=== PATIENT | male | born 1965 | race Caucasian/White ===

== ENCOUNTER → 2017-11-11 | Outpatient (CLI) | payer OTHER ==
[2017-11-16 09:22] LABS: ALDOSTERONE 2.3 ng/dL (0.0-30.0)
== END | disposition home or self-care (01) ==
LOC: LAB 13:22
DX: I12.9 Hypertensive chronic kidney disease with stage 1 through stage 4 chronic kidney disease, or unspecified chronic kidney disease (principal); N18.3 Chronic kidney disease, stage 3 (moderate)
CPT/HCPCS: 36415; 82088; 84244

== ENCOUNTER → 2018-03-17 | Outpatient (CLI) | payer OTHER ==
[2016-07-16 11:48] VITALS: BP 125/79
[~2018-03-17] MED LIST: AMLO5TAB2 PO; ATOR40TA59 PO; HYDR12.53 PO; LISI-130 PO; OMEP20TA63 PO
--- NOTE | 2018-03-17 10:28 | CARD ---
MR#: [id number] Date of Study: 03/17/2018 Ordering Physician: ALLIE HOPPER, Referring Physician: ALLIE HOPPER Tech: Ivelisse García RDCS APPROVED REPORT EXAM: Two-dimensional and M-mode echocardiogram with Doppler and color Doppler. Other Information Quality : Fair INDICATION Hypertension/HCVD 2D DIMENSIONS Left Atrium(2D)3.8 (1.6-4.0cm)IVSd0.9 (0.7-1.1cm) Aortic Root(2D)2.8 (2.0-3.7cm)LVDd4.8 (3.9-5.9cm) LVOT Diameter2.4 (1.8-2.4cm)PWd1.1 (0.7-1.1cm) LVDs2.9 (2.5-4.0cm)FS (%) 30.0 % SV77.8 mlLVEF(%)60.0 (>50%) Aortic Valve AoV Peak Adan.118.6cm/sAoV VTI22.6cm AO Peak GR.5.6mmHgLVOT Peak Adan.98.7cm/s AO Mean GR.3mmHgAVA (VMAX)3.80cm2 RODNEY (VTI)4.10cm2 Mitral Valve MV E Wwtsrklh64.8cm/sMV DECEL [id number] MV A Hjwyaady20.1cm/sE/A Ratio0.9 Tricuspid Valve TR P. Lavzkcce971zf/sRAP NPWYLAWU0miKd TR Peak Gr.92bfLzYIXQ82zyDb Pulmonary Vein S1 Czopnicg06.1cm/sD2 Rtjsylfk43.7cm/s LEFT VENTRICLE The left ventricle is normal size. There is normal left ventricular wall thickness. The left ventricu lar systolic function is normal. The Ejection Fraction is 55-60%. There is normal LV segmental wall m otion. RIGHT VENTRICLE The right ventricle is normal size. The right ventricular systolic function is normal. ATRIA The left atrium size is normal. The right atrium size is normal. The interatrial septum is intact wit h no evidence for an atrial septal defect or patent foramen ovale as noted on 2-D or Doppler imaging. AORTIC VALVE The aortic valve is mildly thickened but opens well. Doppler and Color Flow revealed no significant a ortic regurgitation. There is no significant aortic valvular stenosis. MITRAL VALVE The mitral valve is normal in structure and function. There is no evidence of mitral valve prolapse. There is no mitral valve stenosis. Doppler and Color Flow revealed no mitral valve regurgitation note d. TRICUSPID VALVE The tricuspid valve is normal in structure and function. Doppler and Color Flow revealed trace tricus pid regurgitation. The PA pressure was estimated at 18 mmHg. There is no tricuspid valve stenosis. PULMONIC VALVE The pulmonic valve is not well visualized. Doppler and Color Flow revealed no pulmonic valvular regur gitation. There is no pulmonic valvular stenosis. GREAT VESSELS The aortic root is normal in size. The ascending aorta is normal in size. The IVC was not visualized. PERICARDIAL EFFUSION There is no evidence of significant pericardial effusion. Critical Notification Critical Value: No <Conclusion> The left ventricular systolic function is normal. The Ejection Fraction is 55-60%. There is normal LV segmental wall motion. Doppler and Color Flow revealed trace tricuspid regurgitation. The PA pressure was estimated at 18 mmHg. There is no evidence of significant pericardial effusion. Signed by : Allie Hopper, Electronically Approved : 03/17/2018 10:27:53
== END | disposition home or self-care (01) ==
LOC: ECHO 08:12
PROVIDERS: ATTEND Internal Medicine Cardiovascular Disease
DX: I12.9 Hypertensive chronic kidney disease with stage 1 through stage 4 chronic kidney disease, or unspecified chronic kidney disease (principal); N18.3 Chronic kidney disease, stage 3 (moderate); K21.9 Gastro-esophageal reflux disease without esophagitis; E78.5 Hyperlipidemia, unspecified; Z88.0 Allergy status to penicillin; Z82.49 Family history of ischemic heart disease and other diseases of the circulatory system; Z82.3 Family history of stroke
CPT/HCPCS: 93306

== ENCOUNTER → 2018-05-31 | Outpatient (CLI) | payer OTHER ==
[2016-07-16 11:48] VITALS: BP 125/79
[~2018-05-31] MED LIST changes: -AMLO5TAB2 PO; +AMLO5TAB7 PO
[2018-05-31 16:30] LABS: CALCIUM 9.4 mg/dL (8.5-10.1); CREATININE 1.3 mg/dL (0.7-1.3); GFR 57.5; POTASSIUM 4.2 mmol/L (3.5-5.1)
== END | disposition home or self-care (01) ==
LOC: LAB 16:03
PROVIDERS: ATTEND Internal Medicine Cardiovascular Disease
DX: I12.9 Hypertensive chronic kidney disease with stage 1 through stage 4 chronic kidney disease, or unspecified chronic kidney disease (principal); N18.3 Chronic kidney disease, stage 3 (moderate)
CPT/HCPCS: 36415; 80048